=== PATIENT | male | born 1985 | race Caucasian/White ===

== ENCOUNTER 2025-07-20 15:42 | Emergency (ER) | payer SELFPAY ==
[2025-07-20 15:44] VITALS: BP 168/106
--- NOTE | 2025-07-20 18:10 | ED.SKININJ ---
HPI-Injury
General
Chief Complaint: Skin Surface Trauma
Source: patient
Exam Limitations: none
Time Seen by Provider: 07/20/25 18:02
Nursing documentation reviewed up to this point in time: agreed with
History of Present Illness-Injury
Initial Injury comments:
39 yo male cut the right index and ring finger tips on hedge trimmers within past few hours at home. unsure of last dT.
Past History
Past History
ED Past Medical History: None
Social History
Tobacco: Non-smoker
Alcohol: Occasional
Personal:
Living: with family
Employment: Employed
Review of Systems
Review of Systems
Allergies reviewed?: Yes
All Other Systems: ROS reviewed and negative except as documented in HPI and ROS
Skin Exam
Laceration
Right distal index finger:
Length in cm: 0.7
Orientation: C shaped
Type of Laceration: simple
Distal skin color and temperature: pale (5 mm round 1 mm deep flap, pale)
Normal distal neurovascular exam: No
Range of motion: full
Right distal middle finger:
Length in cm: 2
Orientation: C shaped
Type of Laceration: simple
Any active bleeding?: low grade venous oozing
Distal skin color and temperature: normal-warm & good color
Normal distal neurovascular exam: No
Range of motion: full
Phy Exam
Physical Exam
Physical Exam:
PHYSICAL EXAMINATION:
General: no apparent distress, not acutely ill
Neuro: alert and oriented.
Psychiatric: well kept. interactive and cooperative
Musculoskeletal: Moves with ease
Skin: Warm, pink.
Course
Orders/Labs/Results
Orders:
Orders
07/20/25 15:48
Finger(s)/Thumb 2 View Rt [CR Finger(s)/thumb Min 2 Vw Rt] Urgent
Comment:
Reason For Exam: injury
07/20/25 18:19
Tetanus/Diphth/Acelpertussis [Adacel] 0.5 ml IM .ONCE ONE
07/20/25 18:53
Cephalexin Monohydrate [Keflex] 500 mg PO NOW STA
Vital Signs
Initial and Last Documented VS:
Initial Vital Signs
Temp Pulse Resp BP Pulse Ox
98 F 105 16 168/106 98
07/20/25 15:44 07/20/25 15:44 07/20/25 15:44 07/20/25 15:44 07/20/25 15:44
Last Documented Vital Signs
Temp Pulse Resp BP Pulse Ox
98 F 105 16 168/106 98
07/20/25 15:44 07/20/25 15:44 07/20/25 15:44 07/20/25 15:44 07/20/25 18:12
Procedures
Laceration Closure
Right distal middle finger:
Status of Wound: clean
Size of Wound in cm: 2
Description of Wound Edges: sharp (around the finger tuft and across the nail 2 mm up from nail root)
Preparation: other (cleased with H202 solution)
Anesthesia: Marcaine and Digital-Regional
Revision/Debridement: routine- no revision
Wound exploration: explored to base- no FB and no tendon involvement
Type of Closure: single layer closure and interrupted sutures
Skin Closure Material: 4-0 prolene
Number of sutures: 8
Additional information:
antibiotic ointment, sterile nonstick and tube gauze dressing applied.
MDM/Problems Addressed
MDM/Problems Addressed:
IMPRESSION:
There is a comminuted and displaced fracture through the mid/distal aspect of the distal phalanx of the middle finger. There is associated soft tissue swelling as well as a small radiopacity within the palmar aspect of the distal soft tissues which
may represent an osseous fragment although a small retained foreign body is possible.
Likely small soft tissue defect along the distal aspect of the index finger without underlying acute osseous abnormality.
The distal index finger wound flap was glued, skin adhesive and steristrips applied, band aid and aluminum helmet splint applied.
Rx for Keflex sent to his pharmacy
Referred to hand specialist, he has no PCP
*Pulse Oximetry
SaO2: 98
Oxygen Mode of Delivery: Room air
Patient hypoxic: not evaluated
*Critical Care Note
Total Time (30-74mins, 75-104mins- exclusive of procedures): Not Applicable
ED Attending Note
-
Portions of this chart may have been created with voice recognition software.� Occasional wrong word or��sound alike� substitutions may have occurred due to the inherent limitations of voice recognition software.
Discharge Plan
Departure
Patient Disposition: Home (Routine Discharge)
Date of Disposition: 07/20/25
Time of Disposition: 19:01
Patient with high blood pressure during this ER visit?: No
Condition: Good
Discharge Problem:
Open displaced fracture of distal phalanx of right middle finger, Laceration of right index finger, Laceration of right middle finger with damage to nail
Instructions: Laceration Repair With Stitches (DC), Finger Fracture ED
Prescriptions:
New
cephalexin 500 mg capsule
500 mg PO QID 7 Days Qty: 28 0RF
No Action
hydrocodone-acetaminophen [Vicodin] 1 EACH tablet
1 ea PO Q4 PRN (Reason: pain) Qty: 6 0RF
Referrals:
Chalino Harmon MD [Active, Orthopedics] - Call in 1-3 days for appt
NONE,* [Family Provider, Internal Medicine]
Activity Restrictions/Additional Instructions:
As we discussed, Tylenol or ibuprofen as needed for pain. Elevating the hand slightly higher than your heart may help minimize throbbing pains. The numbing medicine can last anywhere from 2 to 24 hours.
I sent a prescription to your pharmacy for the antibiotic Keflex to take 4 times a day for 7 days.
Remove the current dressing in 2 days, wash the wound daily and as needed with soap and water, dry well, apply antibiotic ointment, Band-Aids and use the aluminum fingertip splint for protection
Call Dr. Harmon's office Wednesday morning and make an appointment for 2 weeks to have the sutures removed.
Seek medical care immediately for signs of infection which may include increasing redness, swelling, pain, pus drainage, red streak up the arm or fever.
For the index finger laceration, shower or bathe with a Band-Aid on then gently remove the Band-Aid, allow the strips to air dry or blow them dry and replace a clean Band-Aid.,
It typically takes this area 2 weeks to heal. If the strips fall off before then simply keep it covered with a Band-Aid.
That little flap of skin may either scab up and fall off or grow back onto the fingertip.
Interventions
Interventions:
*Risk Screen - Suicide Last Done: 07/20/25 15:44
*General Assessment Last Done: 07/20/25 18:10
*Neglect/Abuse Screening Last Done: 07/20/25 15:44
*ED- Fall Risk Assessment Last Done: 07/20/25 19:00
*ED COVID-19 Vaccine History Last Done: 07/20/25 19:00
*ED Influenza Vaccine History Last Done: 07/20/25 19:00
*Nursing Disposition Last Done: 07/20/25 19:10
ED-Skin Assessment Last Done: 07/20/25 18:10
Discharge Date and Time
Discharge Date/Time: 07/20/25 19:10
Print Language: GERMAN
[2025-07-20] MEDS: ADACEL 0.5 ML IM (19:01)
[2025-07-20] MEDS: KEFLEX 500 MG PO (19:04)
== END 2025-07-20 19:10 | disposition home or self-care (01) ==
LOC: EMR 15:42
PROVIDERS: EMERGENCY PHYSICIAN Emergency Medicine
DX: S62.632B Displaced fracture of distal phalanx of right middle finger, initial encounter for open fracture (principal); W45.0XXA Nail entering through skin, initial encounter
CPT/HCPCS: 99283; 12001; 73140; 90715